=== PATIENT | male | born 1940 | race Caucasian/White ===

== ENCOUNTER 2016-12-29 21:44 | Emergency (ER) | payer OTHER ==
[~2016-12-29] VITALS: Ht 180.3 cm; Wt 115.0 kg
[2016-12-29 21:48] VITALS: BP 143/62; PULSE 62; RESP 18; TEMP 97.7; O2SAT 97
--- NOTE | 2016-12-29 22:23 | PD ---
Physical Exam Time Seen by Provider: 22:21 Narrative 76 y/o male here for evaluation of confusion, occasional sharp L sided head pain , poor balance which started early December, worse today. Vital signs reviewed. Seen at triage desk. Awaiting bed placement. Data Data Last Documented VS Vital Signs Date Time Temp Pulse Resp B/P Pulse Ox O2 Delivery O2 Flow Rate FiO2 12/29/16 21:48 97.7 62 18 143/62 97 Room Air [facility] Medical Record Reviewed: Yes Supervised Visit with COLIN: Andrew Morgan Dec 29, 2016 22:23
[2016-12-29] MEDS ORDERED: SODIUM CHLORIDE 0.9% FLUSH 5 ML FLUSH IV FLUSH PRN (22:30)
--- NOTE | 2016-12-29 22:58 | RADRPT ---
EXAM DATE/TIME: 12/29/2016 22:42 [facility] COMPARISON: No previous studies available for comparison. INDICATIONS : Altered mental status, left side head pain. RADIATION DOSE: 56.35 CTDIvol (mGy) MEDICAL HISTORY : Diabetes mellitus type 1. Carcinoma, prostate. Carcinoma, bladder. SURGICAL HISTORY : None. ENCOUNTER: Initial ACUITY: 1 day PAIN SCALE: 5/10 LOCATION: cranial TECHNIQUE: Multiple contiguous axial images were obtained of the head. Using automated exposure control and adj ustment of the mA and/or kV according to patient size, radiation dose was kept as low as reasonably a chievable to obtain optimal diagnostic quality images. DICOM format image data is available electro nically for review and comparison. FINDINGS: CEREBRUM: The ventricles are normal for age. No evidence of midline shift, mass lesion, hemorrhage or acute in farction. No extra-axial fluid collections are seen. POSTERIOR FOSSA: The cerebellum and brainstem are intact. The 4th ventricle is midline. The cerebellopontine angle i s unremarkable. EXTRACRANIAL: The visualized portion of the orbits is intact. SKULL: The calvaria is intact. No evidence of skull fracture. CONCLUSION: No acute intracranial findings. Amarjit Marshall MD on December 29, 2016 at 22:53 Board Certified Radiologist. This report was verified electronically.
[2016-12-29 23:00] LABS: AUTOMATED NEUTROPHIL # 4.4 TH/MM3 (1.8-7.7); BASOPHIL % 0.4 % (0.0-2.0); EOSINOPHIL # 0.1 TH/MM3 (0-0.4); EOSINOPHIL % 1.1 % (0.0-4.0); HEMATOCRIT 38.8 % (39.0-51.0); HEMO FLAGS DIFF FINAL; LYMPH % 29.8 % (9.0-44.0); LYMPHOCYTE # 2.1 TH/MM3 (1.0-4.8); MEAN CELL VOLUME 97.7 FL (80.0-100.0); MEAN CORPUSCULAR HEMOGLOBIN 33.6 PG (27.0-34.0); MEAN CORPUSCULAR HGB CONC 34.4 % (32.0-36.0); MONO % 6.8 % (0.0-8.0); NEUT % 61.9 % (16.0-70.0); PLATELET COUNT 283 TH/MM3 (150-450); RED BLOOD COUNT 3.97 MIL/MM3 (4.50-5.90); RED CELL DISTRIBUTION WIDTH 12.6 % (11.6-17.2); WHITE BLOOD COUNT 7.1 TH/MM3 (4.0-11.0)
--- NOTE | 2016-12-29 23:05 | RADRPT ---
EXAM DATE/TIME: 12/29/2016 22:51 [facility] COMPARISON: CT BRAIN W/O CONTRAST, December 29, 2016, 22:42. INDICATIONS : Patient has felt very weak and short of breath for two weeks. MEDICAL HISTORY : Hypertension. Diabetes mellitus type II. SURGICAL HISTORY : None. ENCOUNTER: Initial ACUITY: 2 weeks PAIN SCORE: 0/10 LOCATION: Bilateral chest FINDINGS: Single AP view of the chest. The lungs are clear. Mild prominent cardiac silhouette. No evidence of p leural effusion or pneumothorax. CONCLUSION: Mild prominent cardiac silhouette. No other acute cardiopulmonary disease identif ied. Amarjit Marshall MD on December 29, 2016 at 23:02 Board Certified Radiologist. This report was verified electronically.
[2016-12-29 23:06] LABS: BACTERIA, URINE RARE /hpf; BLOOD, URINE NEG (NEG); GLUCOSE,URINE 150 mg/dL (NEG); KETONE, URINE NEG (NEG); MUCUS URINE FEW /lpf (OCC); NITRITE,URINE NEG (NEG); PH, URINE 5.5 (5.0-8.5); SQUAMOUS EPITHELIAL CELL URINE <1 /hpf (0-5); URINE COLOR YELLOW (YELLW/STRAW)
[2016-12-29 23:12] LABS: APTT (PATIENT) 22.9 SEC (24.3-30.1); INTERNATIONAL NORMALIZED RATIO 0.9 RATIO; PROTHROMBIN TIME - PATIENT 10.3 SEC (9.8-11.6)
[2016-12-29 23:16] LABS: COMMENT (UR) CULT NOT INDICATED; CULTURE IF INDICATED CULT NOT INDICATED
--- NOTE | 2016-12-29 23:16 | PD ---
HPI . Left temporal pain Chief Complaint: Neuro Symptoms/ Deficits Time Seen by Provider: 22:26 Travel History International Travel<30 days: No Contact w/Intl Traveler<30days: No Traveled to known affect area: No History of Present Illness HPI This patient presents with treatment complaint of left temporal pain which started last night. It is an occasional shooting pain. It comes and goes. It is rated 5/10. No modifying factors. Addition, the patient has been having tremors which are worse with activity. They started maybe 3 months ago. He has had some associated weakness and had a fall several months ago this. The symptoms are getting progressively worse. His also reports occasional confusion which is getting progressively worse. He has not had any visual disturbance. He has not had any nausea or vomiting. He has not seen a doctor about all of these issues. [facility] Past Medical History Diabetes: Yes Social History Tobacco Use: No Allergies-Medications (Allergen,Severity, Reaction): Coded Allergies: No Known Allergies (Unverified , 12/29/16) Review of Systems Except as stated in HPI: all other systems reviewed are Neg General / Constitutional: No: Fever, Chills Eyes: No: Diploplia, Blurred Vision HENT: Positive: Headaches Cardiovascular: No: Chest Pain or Discomfort Respiratory: No: Shortness of Breath Gastrointestinal: No: Nausea, Vomiting, Diarrhea Genitourinary: Positive: Other (history of both prostate and bladder cancer), No: Urgency, Frequency, Dysuria Musculoskeletal: Positive: Weakness Neurologic: Positive: Weakness, Tremor, Headache, Other (confusion/memory loss) , No: Focal Abnormalities Physical Exam Narrative GENERAL: Patient is awake and alert and does not appear to be in any acute distress. He does occasionally ask what we were talking about. SKIN: Warm and dry. HEAD: Atraumatic. Normocephalic. EYES: Pupils equal and round. Extraocular movements are intact. ENT: No nasal bleeding or discharge. Mucous membranes pink and moist. NECK: Trachea midline. Neck is supple. CARDIOVASCULAR: Regular rate and rhythm. Heart sounds are normal. RESPIRATORY: No accessory muscle use. Lungs are clear with full air movement throughout. GASTROINTESTINAL: Abdomen soft, non-tender, nondistended. MUSCULOSKELETAL: No obvious deformities. No edema. NEUROLOGICAL: Awake and alert. No obvious cranial nerve deficits. Motor grossly within normal limits. Normal speech. He has a resting tremor which is worse with intention. PSYCHIATRIC: Appropriate mood and affect; insight and judgment normal. Data Data Last Documented VS Vital Signs Date Time Temp Pulse Resp B/P Pulse Ox O2 Delivery O2 Flow Rate FiO2 12/29/16 23:24 98 Room Air 12/29/16 21:48 97.7 62 18 143/62 Orders Electrocardiogram (12/29/16 22:26) Complete Blood Count With Diff (12/29/16 22:26) Comprehensive Metabolic Panel (12/29/16 22:26) Creatine Kinase (Cpk) (12/29/16 22:26) Prothrombin Time / Inr (Pt) (12/29/16 22:26) Act Partial Throm Time (Ptt) (12/29/16 22:26) Troponin I (12/29/16 22:26) Urinalysis - C+S If Indicated (12/29/16 22:26) Chest, Single Ap (12/29/16 22:26) Ct Brain W/O Iv Contrast(Rout) (12/29/16 22:26) Ecg Monitoring (12/29/16 22:26) Iv Access Insert/Monitor (12/29/16 22:26) Oximetry (12/29/16 22:26) Sodium Chloride 0.9% Flush (Ns Flush) (12/29/16 22:30) Labs Laboratory Tests Test 12/29/16 22:40 White Blood Count 7.1 TH/MM3 Red Blood Count 3.97 MIL/MM3 Hemoglobin 13.4 GM/DL Hematocrit 38.8 % Mean Corpuscular Volume 97.7 FL Mean Corpuscular Hemoglobin 33.6 PG Mean Corpuscular Hemoglobin 34.4 % Concent Red Cell Distribution Width 12.6 % Platelet Count 283 TH/MM3 Mean Platelet Volume 7.9 FL Neutrophils (%) (Auto) 61.9 % Lymphocytes (%) (Auto) 29.8 % Monocytes (%) (Auto) 6.8 % Eosinophils (%) (Auto) 1.1 % Basophils (%) (Auto) 0.4 % Neutrophils # (Auto) 4.4 TH/MM3 Lymphocytes # (Auto) 2.1 TH/MM3 Monocytes # (Auto) 0.5 TH/MM3 Eosinophils # (Auto) 0.1 TH/MM3 Basophils # (Auto) 0.0 TH/MM3 CBC Comment DIFF FINAL Differential Comment Prothrombin Time 10.3 SEC Prothromb Time International 0.9 RATIO Ratio Activated Partial 22.9 SEC Thromboplast Time Urine Color YELLOW Urine Turbidity CLEAR Urine pH 5.5 Urine Specific [place] 1.028 Urine Protein TRACE mg/dL Urine Glucose (UA) 150 mg/dL Urine Ketones NEG mg/dL Urine Occult Blood NEG Urine Nitrite NEG Urine Bilirubin NEG Urine Urobilinogen 2.0 MG/DL Urine Leukocyte Esterase NEG Urine RBC 1 /hpf Urine WBC 1 /hpf Urine Squamous Epithelial <1 /hpf Cells Urine Bacteria RARE /hpf Urine Mucus FEW /lpf Microscopic Urinalysis Comment CULT NOT INDICATED Sodium Level 137 MEQ/L Potassium Level 4.1 MEQ/L Chloride Level 106 MEQ/L Carbon Dioxide Level 22.0 MEQ/L Anion Gap 9 MEQ/L Blood Urea Nitrogen 26 MG/DL Creatinine 1.25 MG/DL Estimat Glomerular Filtration 56 ML/MIN Rate Random Glucose 154 MG/DL Calcium Level 9.5 MG/DL Total Bilirubin 0.4 MG/DL Aspartate Amino Transf 20 U/L (AST/SGOT) Alanine Aminotransferase 20 U/L (ALT/SGPT) Alkaline Phosphatase 68 U/L Total Creatine Kinase 114 U/L Troponin I LESS THAN 0.02 NG/ML Total Protein 7.3 GM/DL Albumin 3.6 GM/DL [facility] Medical Decision Making Medical Screen Exam Complete: Yes Emergency Medical Condition: Yes Medical Record Reviewed: Yes (this patient has no previous records in our system.) Interpretation(s) EKG shows a sinus bradycardia with a rate of 49. No acute ischemic change. Differential Diagnosis Differential diagnosis of headache includes but is not limited to migraine, muscle contraction headache, brain tumor, brain bleed Differential diagnosis of altered mental status includes but is not limited to infection, electrolyte abnormality, neurological event, intoxication Narrative Course This patient presents with chief complaint of a left temporal headache which comes and goes and which started yesterday. He and his are also concerned about tremors, weakness and memory loss which have been ongoing and getting progressively worse for the last several months. CBC Diagram 12/29/16 22:40 UA is negative for infection. BMP Diagram 12/29/16 22:40 Cardiac enzymes are negative. Last Impressions Head CT 12/29/162225 Signed Impressions: Service Date/Time: December 22:42 - CONCLUSION: No acute intracranial findings. Amarjit Marshall MD Chest X-Ray 12/29/162225 Signed Impressions: Service Date/Time: , December 29, 2016 22:51 - CONCLUSION: Mild prominent cardiac silhouette. No other acute cardiopulmonary disease identified. 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 These can be done as an outpatient. Disposition: 01 DISCHARGE HOME Condition: Stable Mary Anne Gannon MD Dec 29, 2016 23:16
[2016-12-29 23:24] VITALS: O2SAT 98
[2016-12-29 23:24] LABS: ANION GAP 9 MEQ/L (5-15); AST (GOT) 20 U/L (15-37); BLOOD UREA NITROGEN 26 MG/DL (7-18); CHLORIDE 106 MEQ/L (98-107); GLOMERULAR FILTRATION RATE 56 ML/MIN (>89); POTASSIUM 4.1 MEQ/L (3.5-5.1); SODIUM (NA) 137 MEQ/L (136-145)
[2016-12-29 23:25] LABS: ALT (GPT) 20 U/L (12-78)
[2016-12-29 23:29] LABS: ALKALINE PHOSPHATASE 68 U/L (45-117); CREATINE KINASE 114 U/L (39-308); TOTAL BILIRUBIN ADULT 0.4 MG/DL (0.2-1.0)
[2016-12-29] MEDS ORDERED: BICA50TA PO (23:29)
[2016-12-29] MEDS ORDERED: FLUO1TAB17 (23:29)
[2016-12-29] MEDS ORDERED: GLIP5TAB8 PO (23:29)
[2016-12-29] MEDS ORDERED: LOSA50TA PO (23:30)
[2016-12-29] MEDS ORDERED: SIMV20TA PO (23:30)
[2016-12-29] MEDS ORDERED: OMEP20TA PO (23:30)
[2016-12-29] MEDS ORDERED: BUPR300T PO (23:30)
[2016-12-29] MEDS ORDERED: HYDR-755 PO (23:30)
--- NOTE | 2016-12-30 07:53 | EKG ---
Date Performed: 12/29/2016 Time Performed: 23:22:48 PTAGE: 76 years EKG: Baseline artifact present SUPRAVENTRICULAR BRADYCARDIA INCOMPLETE RIGHT BUNDLE BRANCH BLOCK ABNORMAL RHYTHM ECG Clinical correlation is recommended NO PREVIOUS TRACING DOCTOR: Brian Albrecht Interpretating Date/Time 12/30/2016 07:52:30
== END 2016-12-29 23:45 | disposition home or self-care (01) ==
LOC: NEPE 21:44
DX: G44.039 Episodic paroxysmal hemicrania, not intractable (principal); R41.3 Other amnesia; G25.2 Other specified forms of tremor; R53.1 Weakness; R94.31 Abnormal electrocardiogram [ECG] [EKG]; E11.9 Type 2 diabetes mellitus without complications; Z85.46 Personal history of malignant neoplasm of prostate; Z85.51 Personal history of malignant neoplasm of bladder
CPT/HCPCS: 70450; 71010; 80053; 81001; 82550; 84484; 85025; 85610; 85730; 93005